=== PATIENT | male | born 1945 | race Caucasian/White ===

== ENCOUNTER 2016-08-15 11:41 | Emergency (ER) | payer OTHER ==
[~2016-08-15] VITALS: Ht 175.3 cm; Wt 118.4 kg
[~2016-08-15 11:41] MED LIST: ALBUTEROL17 GM IH; Advair 250/50 Diskus IH; Advair HFA 115/21 IH; BROMOCRIPTINE ME5 MG PO; DOXYCYCLINE HY100 MG PO; DUONEB 2.5-0.5 M3 ML IH; HYDROCHLOROTH12.5 M1 PO; HYDROCHLOROTHIA25 MG PO; Hydrodiuril,Oretic,E PO; IBUPROFEN600 MG PO; Levaquin PO; Parlodel PO; Protonix PO; VIBRAMYCIN100 M2 PO
[2016-08-15] MEDS ORDERED: PERCOCET 5/31 TABLET PO (13:14)
[2016-08-15 13:53] VITALS: BP 160/91
== END 2016-08-15 13:55 | disposition home or self-care (01) ==
LOC: EME 11:41
DX: S40.012A Contusion of left shoulder, initial encounter (principal); S22.39XA Fracture of one rib, unspecified side, initial encounter for closed fracture; W00.0XXA Fall on same level due to ice and snow, initial encounter; J45.909 Unspecified asthma, uncomplicated; I10 Essential (primary) hypertension
CPT/HCPCS: 71010; 73030; 73060; 93005; 99281; 99285